=== PATIENT | male | born 1970 | race Caucasian/White ===

== ENCOUNTER 2016-06-20 16:18 | Emergency (ER) | payer SELFPAY ==
[~2016-06-20] VITALS: Ht 182.9 cm; Wt 89.9 kg
[~2016-06-20 16:18] MED LIST: Ecotrin PO
[2016-06-20 16:43] LABS: MCH 30.5 PG (29.0-34.0); MCHC 35.2 G/DL (30.0-36.0); MCV 86.6 FL (86-99); MEAN PLAT.VOLUME 9.5 uM^3 (9.0-12.4); PLATELET COUNT 221 K/uL (156-360); RBC DIS.WIDTH-CV 11.7 % (11.8-14.6); RBC DIS.WIDTH-SD 36.7 % (39-53); RED BLOOD COUNT 4.85 M/uL (4.00-5.50); WHITE BLOOD COUNT 7.1 K/uL (4.1-10.2)
[2016-06-20 16:51] LABS: CHLORIDE 102 mEq/L (99-109); POTASSIUM 3.6 mEq/L (3.7-5.4); SODIUM 137 mEq/L (136-147)
[2016-06-20 16:53] LABS: GLUCOSE 118 mg/dL (70-99)
[2016-06-20 16:54] LABS: ANION GAP 11 MEQ/L (2-14)
[2016-06-20 16:55] LABS: TOTAL BILIRUBIN 0.3 mg/dL (0.0-1.0)
[2016-06-20 16:56] LABS: ALKALINE PHOSPHATASE 86 IU/L (3-129)
[2016-06-20 16:57] LABS: GFR ESTIMATE (CALCULATED) > 59 mL/min/
[2016-06-20 16:58] LABS: UREA NITROGEN (BUN) 10 mg/dL (9-23)
[2016-06-20 17:31] LABS: ADD MIUA? NO; BILIRUBIN NEGATIVE; BLOOD NEGATIVE; COLOR YELLOW ((YELLOW)); GLUCOSE (STRIP) NEGATIVE; KETONES NEGATIVE; LEUKOCYTES NEGATIVE; NITRITE NEGATIVE; PROTEIN (STRIP) NEGATIVE; UCUL ADDED? NO; UROBILINOGEN 0.2 MG/DL (0.2-1.0)
[2016-06-20] MEDS ORDERED: ZOFRAN ODT4 MG PO (17:58)
[2016-06-20 18:20] VITALS: BP 138/91
== END 2016-06-20 18:32 | disposition home or self-care (01) ==
LOC: RME 16:18 → EME 16:18 → RME 18:32
DX: J11.2 Influenza due to unidentified influenza virus with gastrointestinal manifestations (principal); F17.210 Nicotine dependence, cigarettes, uncomplicated
CPT/HCPCS: 80053; 81003; 85027; 99281; 99284; J1885; J2405; J7030

== ENCOUNTER 2017-12-08 09:44 | Inpatient (IN) | payer OTHER ==
[~2017-12-08] VITALS: Ht 182.9 cm; Wt 86.6 kg
[~2017-12-08 09:44] MED LIST changes: +ZOFRAN ODT4 MG PO
[2017-12-08 10:47] LABS: BASOPHIL (%) 0.6 % (0-1); BASOPHIL COUNT 0.1 K/uL (0-0.1); EOSINOPHIL (%) 1.7 % (0-5); EOSINOPHIL COUNT 0.2 K/uL (0-0.3); HEMATOCRIT 43.1 % (38.0-50.0); IMMATURE GRANULOCYTE (%) 0.5 % (0.0-0.7); LYMPHOCYTE (%) 19.3 % (15-42); LYMPHOCYTE COUNT 1.7 K/uL (1.0-2.8); MCH 30.9 PG (29.0-34.0); MCHC 34.8 G/DL (30.0-36.0); MCV 88.9 FL (86-99); MONOCYTE (%) 8.7 % (3-12); MONOCYTE COUNT 0.8 K/uL (0-0.8); NEUTROPHIL (%) 69.2 % (45-76); NEUTROPHIL COUNT 6.1 K/uL (1.8-6.4); PLATELET COUNT 226 K/uL (156-360); RBC DIS.WIDTH-CV 11.9 % (11.8-14.6); RBC DIS.WIDTH-SD 38.6 % (39-53); RED BLOOD COUNT 4.85 M/uL (4.00-5.50); WHITE BLOOD COUNT 8.8 K/uL (4.1-10.2)
[2017-12-08 10:56] LABS: CHLORIDE 101 mEq/L (99-109); POTASSIUM 3.5 mEq/L (3.7-5.4); SODIUM 139 mEq/L (136-147)
[2017-12-08 10:58] LABS: GLUCOSE 110 mg/dL (70-99)
[2017-12-08 11:01] LABS: SERUM ETHYL ALCOHOL < 10 mg/dL
[2017-12-08 11:02] LABS: CREATININE 0.9 mg/dL (0.6-1.3); GFR ESTIMATE (CALCULATED) > 59 mL/min/ (58.99-99999)
[2017-12-08 11:03] LABS: APPEARANCE CLEAR ((CLEAR)); BILIRUBIN NEGATIVE; BLOOD NEGATIVE; COLOR YELLOW ((YELLOW)); GLUCOSE (STRIP) 50; KETONES NEGATIVE; LEUKOCYTES NEGATIVE; NITRITE NEGATIVE; PROTEIN (STRIP) NEGATIVE; SPECIFIC GRAVITY 1.013 (1.000-1.030); UROBILINOGEN 0.2 MG/DL (0.2-1.0)
[2017-12-08 11:03] LABS: UREA NITROGEN (BUN) 10 mg/dL (9-23)
[2017-12-08 11:13] LABS: AMPHETAMINE NEGATIVE (500 ng/mL); BARBITURATES NEGATIVE (200 ng/mL); BENZODIAZEPINES NEGATIVE (150 ng/mL); BUPRENORPHINE NEGATIVE (10 ng/mL); COCAINE NEGATIVE (150 ng/mL); METHADONE NEGATIVE (200 ng/mL); METHAMPHETAMINE NEGATIVE (500 ng/mL); OPIATES (MORPHINE) NEGATIVE (100 ng/mL); OXYCODONE NEGATIVE (100 ng/mL); PHENCYCLIDINE NEGATIVE (25 ng/mL); PROPOXYPHENE NEGATIVE (300 ng/mL); THC CANNABINOIDS NEGATIVE (50 ng/mL); TRICYCLIC ANTIDEPRESSANTS NEGATIVE (300 ng/mL)
[2017-12-08 17:17] VITALS: BP 144/83
[2017-12-09 07:42] VITALS: BP 114/76
[2017-12-09] MEDS ORDERED: NALTREXONE HCL50 MG PO (10:50)
[2017-12-09] MEDS ORDERED: FOLIC ACID1 MG PO (10:50)
[2017-12-09] MEDS ORDERED: Thiamine,Vitamin B1 PO (10:50)
[2017-12-09] MEDS ORDERED: LEXAPRO20 MG PO (10:50)
== END 2017-12-09 12:26 | disposition home or self-care (01) | DRG 882 ==
LOC: EME 09:44 → 1WEST 13:43 → EDOF 13:43 → 1WEST 13:43 → CANRESERV 13:52 → ENRESERV 13:52 → 1WEST 17:10
PROVIDERS: Emergency Medicine
DX: F43.23 Adjustment disorder with mixed anxiety and depressed mood (principal); J43.9 Emphysema, unspecified; F10.20 Alcohol dependence, uncomplicated; F17.200 Nicotine dependence, unspecified, uncomplicated; R45.851 Suicidal ideations
CPT/HCPCS: 80048; 81003; 85025; 90839; 99281; 99285; G0480